=== PATIENT | female | born 1995 | race Caucasian/White ===

== ENCOUNTER 2017-06-30 08:03 | Emergency (ER) | payer SELFPAY ==
[~2017-06-30] VITALS: Ht 167.6 cm; Wt 82.0 kg
[2017-06-30 08:16] VITALS: BP 109/72
[2017-06-30] MEDS ORDERED: TETRACAINE 0.5% OPHTH DROPS 4ML OP ONE (10:15)
[2017-06-30] MEDS ORDERED: IBUPROFEN 600MG TABLET PO ONE (10:15)
[2017-06-30] MEDS ORDERED: FLUORESCEIN SODIUM 1MG/STRIP OP ONE (10:15)
== END 2017-06-30 11:42 | disposition left against medical advice (07) ==
LOC: ER 08:24
DX: H10.33 Unspecified acute conjunctivitis, bilateral (principal)
CPT/HCPCS: 99283

== ENCOUNTER 2017-09-07 14:37 | Emergency (ER) | payer SELFPAY ==
[~2017-09-07] VITALS: Ht 170.2 cm; Wt 90.0 kg
[2017-09-07 18:45] VITALS: BP 108/74
[2017-09-07] MEDS ORDERED: IBUPROFEN 600MG TABLET PO ONE (18:45)
== END 2017-09-07 18:50 | disposition home or self-care (01) ==
LOC: ER 14:43
DX: S60.221A Contusion of right hand, initial encounter (principal); F17.200 Nicotine dependence, unspecified, uncomplicated; F12.10 Cannabis abuse, uncomplicated; W22.8XXA Striking against or struck by other objects, initial encounter; Y93.89 Activity, other specified; Y92.89 Other specified places as the place of occurrence of the external cause; Y99.8 Other external cause status
CPT/HCPCS: 73130; 81025; 99284